=== PATIENT | male | born 1985 | race Caucasian/White ===

== ENCOUNTER 2021-05-31 22:18 | Emergency (ER) | payer OTHER ==
[2021-06-01] MEDS ORDERED: PROVENTIL HFA6.7 GM INH (01:07)
[2021-06-01] MEDS ORDERED: IBUPROFEN600 MG PO (01:07)
[2021-06-01] MEDS ORDERED: BENZONATATE100 MG PO (01:07)
== END 2021-06-01 01:20 | disposition home or self-care (01) ==
LOC: ER1 22:18
DX: U07.1 COVID-19 (principal); K21.9 Gastro-esophageal reflux disease without esophagitis
CPT/HCPCS: 0240U; 71045; 87081; 87880; 99283